=== PATIENT | female | born 1995 | race Caucasian/White ===

== ENCOUNTER 2023-04-08 21:47 | Emergency (ER) | payer MEDICAID, OTHER ==
[~2023-04-08] VITALS: Ht 160 cm; Wt 68.0 kg
[~2023-04-08 21:47] MED LIST: QUET25TA36 PO
[2023-04-08 22:21] VITALS: BP 163/47; PULSE 107; RESP 20; TEMP 99.4
== END 2023-04-08 23:02 | disposition left against medical advice (07) ==
LOC: EMS 21:47
DX: F41.8 Other specified anxiety disorders (principal); Z53.21 Procedure and treatment not carried out due to patient leaving prior to being seen by health care provider
CPT/HCPCS: 99281; Z7502

== ENCOUNTER 2023-04-09 22:40 | Inpatient (IN) | payer MEDICAID ==
[~2023-04-09] VITALS: Ht 154.9 cm; Wt 73.7 kg
[2023-04-09 23:26] LABS: GLUCOMETER DEV NAME(LOC) POC.BV
[2023-04-10 00:33] VITALS: BP 129/87; PULSE 84; RESP 18; TEMP 98.2
[2023-04-10 05:26] VITALS: BP 127/76; PULSE 99; RESP 18; TEMP 98.2
[2023-04-10] MEDS: HALOPERIDOL 5 MG TABLET PO PRN ×2 (05:31→22:51)
[2023-04-10] MEDS: LORazepam 2 MG TABLET PO PRN ×3 (05:32→22:03)
[2023-04-10] MEDS ORDERED: ALBUTEROL SULFATE HFA 90 MCG/PUFF 8 GM INHALER IH PRN (06:30)
[2023-04-10] MEDS ORDERED: NICOTINE 14 MG/24 HOUR PATCH TD PRN (06:30)
[2023-04-10] MEDS ORDERED: LOPERAMIDE HCL 2 MG CAPSULE PO PRN (06:30)
[2023-04-10] MEDS ORDERED: DOCUSATE SODIUM 100 MG CAPSULE PO PRN (06:30)
[2023-04-10] MEDS ORDERED: ACETAMINOPHEN 325 MG TABLET PO PRN (06:30)
[2023-04-10] MEDS ORDERED: CloNIDine HCL 0.1 MG TABLET PO PRN (06:30)
[2023-04-10] MEDS ORDERED: MAGNESIUM HYDROXIDE SUSPENSION 30 ML UDCUP PO PRN (06:30)
[2023-04-10] MEDS ORDERED: GuaiFENesin/D-METHORPHAN [SUGAR-FREE] 200-20MG/10 ML SYRUP UDCUP PO PRN (06:30)
[2023-04-10] MEDS ORDERED: PETROLATUM,WHITE 28 GM JELLY TP PRN (06:30)
[2023-04-10] MEDS ORDERED: MAG HYDROX/AL HYDROX/SIMETH ES 30 ML SUSPENSION UDCUP PO PRN (06:30)
[2023-04-10 08:06] LABS: BASOPHILS % (AUTO) 0.5 % (0.0-2.0); EOSINOPHILS % (AUTO) 0.2 % (1.0-6.0); HEMATOCRIT 36.5 % (36-46); HEMOGLOBIN 12.1 g/dL (12.0-16.0); LYMPHOCYTES # (AUTO) 2.5 K/uL (1.0-4.8); MEAN CORPUSCULAR HGB CONC 33.1 G/dL (31.0-37.0); MEAN CORPUSCULAR VOLUME 94 fL (80-100); MONOCYTES # (AUTO) 0.5 K/uL (0.1-1.0); MONOCYTES % (AUTO) 5.8 % (2.0-9.0); NEUTROPHILS % (AUTO) 62.5 % (40.0-70.0); PLATELET COUNT (AUTO) 270 K/uL (150-450); RED CELL DISTRIBUTION WIDTH 13.8 % (11.5-14.5)
[2023-04-10 08:08] LABS: HEMOGLOBIN A1C 5.1 % (3.8-5.6)
[2023-04-10 08:14] VITALS: RESP 16
[2023-04-10 08:34] LABS: ALANINE AMINOTRANSFERASE 21 U/L (12-78); ALBUMIN 3.4 g/dL (3.4-5.0); ALKALINE PHOSPHATASE 70 U/L (46-116); ANION GAP 12 mmol/L (8-16); ASPARTATE AMINOTRANSFERASE 23 U/L (15-37); BILIRUBIN,TOTAL 0.5 mg/dL (0.1-1.0); CALCIUM, TOTAL 8.5 mg/dL (8.8-10.5); CARBON DIOXIDE 25 mmol/L (22-29); CHLORIDE 104 mmol/L (98-107); CHOL/HDL RATIO 2.8 (3.9-5.7); CHOLESTEROL 130 mg/dL (131-200); CREATININE 0.49 mg/dL (0.60-1.30); FREE T4 (FREE THYROXINE) 1.34 ng/dL (0.76-1.46); GLOMERULAR FILTR. RATE CALC > 60 mL/min (>60); GLUCOSE,RANDOM 86 mg/dL (70-110); HCG,QUANTITATIVE < 1 mIU/mL (0-6); HDL CHOLESTEROL 47 mg/dL (40-60); LDL CHOL (CALC.) 67 mg/dL (0-130); POTASSIUM 3.6 mmol/L (3.5-5.1); SODIUM SERUM 141 mmol/L (136-145); THYROID STIMULATING HORMONE 1.67 uIU/mL (0.36-3.74); TRIGLYCERIDES 80 mg/dL (15-150)
[2023-04-10] MEDS: QUEtiapine FUMARATE 25 MG TABLET PO SCH ×2 (10:00→16:04)
[2023-04-10 21:36] VITALS: BP 120/61; PULSE 91; RESP 18; TEMP 97.8; O2SAT 96
[2023-04-10] MEDS: ZOLPIDEM TARTRATE 10 MG TABLET PO PRN (22:51)
[2023-04-11] MEDS: QUEtiapine FUMARATE 25 MG TABLET PO SCH ×2 (08:04→16:43)
[2023-04-11 08:12] LABS: CHOL/HDL RATIO 3.1 (3.9-5.7); THYROID STIMULATING HORMONE 1.4 uIU/mL (0.36-3.74)
[2023-04-11 09:57] VITALS: BP 120/61; PULSE 91; RESP 18; TEMP 97.8; O2SAT 96
[2023-04-11] MEDS: LORazepam 2 MG TABLET PO PRN (16:42)
[2023-04-11 20:27] VITALS: BP 123/79; PULSE 100; RESP 17; TEMP 97.8; O2SAT 98
[2023-04-12] MEDS: ONDANSETRON HCL 4 MG TABLET PO PRN (06:46)
[2023-04-12 08:00] VITALS: BP 96/68; PULSE 100; RESP 16; TEMP 98.1; O2SAT 96
[2023-04-12] MEDS: QUEtiapine FUMARATE 25 MG TABLET PO SCH ×2 (08:14→16:04)
[2023-04-12] MEDS: LORazepam 2 MG TABLET PO PRN (20:31)
[2023-04-12] MEDS: HALOPERIDOL 5 MG TABLET PO PRN (20:31)
[2023-04-12 21:28] VITALS: BP 117/66; PULSE 95; RESP 18; TEMP 98
[2023-04-13 08:08] VITALS: BP 118/67; PULSE 75; RESP 17; TEMP 98; O2SAT 97
[2023-04-13] MEDS: QUEtiapine FUMARATE 25 MG TABLET PO SCH ×2 (08:21→16:22)
[2023-04-13] MEDS: ONDANSETRON HCL 4 MG TABLET PO PRN (08:36)
[2023-04-13] MEDS: LORazepam 2 MG TABLET PO PRN ×2 (08:37→20:52)
[2023-04-13 20:00] VITALS: BP 122/81; PULSE 109; RESP 18; TEMP 97.6; O2SAT 97
[2023-04-13] MEDS: ZOLPIDEM TARTRATE 10 MG TABLET PO PRN (20:52)
[2023-04-13] MEDS: HALOPERIDOL 5 MG TABLET PO PRN (22:29)
[2023-04-14] MEDS: QUEtiapine FUMARATE 25 MG TABLET PO SCH ×2 (08:06→16:08)
[2023-04-14] MEDS: LORazepam 2 MG TABLET PO PRN ×3 (08:06→22:06)
[2023-04-14 09:43] VITALS: BP 113/66; PULSE 97; RESP 18; TEMP 98.4; O2SAT 98
[2023-04-14] MEDS: HALOPERIDOL 5 MG TABLET PO PRN (10:51)
[2023-04-14 22:00] VITALS: BP 118/64; PULSE 96; RESP 18; TEMP 98
[2023-04-14] MEDS: ZOLPIDEM TARTRATE 10 MG TABLET PO PRN (22:06)
[2023-04-15 08:28] VITALS: BP 112/73; PULSE 97; RESP 16; TEMP 98; O2SAT 99
[2023-04-15] MEDS: QUEtiapine FUMARATE 25 MG TABLET PO SCH ×2 (08:34→16:30)
[2023-04-15] MEDS: HALOPERIDOL 5 MG TABLET PO PRN (08:34)
[2023-04-15] MEDS: LORazepam 2 MG TABLET PO PRN ×2 (08:34→16:31)
[2023-04-15] MEDS: IBUPROFEN 400 MG TABLET PO PRN (16:31)
[2023-04-15 20:26] VITALS: BP 108/75; PULSE 84; RESP 18; TEMP 98.1; O2SAT 97
[2023-04-16 08:07] VITALS: BP 113/65; PULSE 93; RESP 18; TEMP 97.7; O2SAT 98
[2023-04-16] MEDS: QUEtiapine FUMARATE 25 MG TABLET PO SCH ×2 (09:28→16:41)
[2023-04-16] MEDS: LORazepam 2 MG TABLET PO PRN ×2 (09:28→16:41)
[2023-04-16 20:11] VITALS: BP 114/77; PULSE 98; RESP 18; TEMP 98.3; O2SAT 97
[2023-04-16 20:28] VITALS: RESP 18
[2023-04-16] MEDS: IBUPROFEN 400 MG TABLET PO PRN (20:28)
[2023-04-17 08:20] VITALS: BP 113/66; PULSE 102; RESP 17; TEMP 98.5; O2SAT 99
[2023-04-17] MEDS: QUEtiapine FUMARATE 25 MG TABLET PO SCH ×2 (08:36→16:55)
[2023-04-17 20:07] VITALS: BP 127/86; PULSE 104; RESP 19; TEMP 98; O2SAT 96
[2023-04-18 08:25] VITALS: BP 116/69; PULSE 78; RESP 18; TEMP 97.6; O2SAT 99
[2023-04-18] MEDS ORDERED: QUET25TA PO (08:27)
[2023-04-18] MEDS: QUEtiapine FUMARATE 25 MG TABLET PO SCH (09:53)
== END 2023-04-18 13:00 | disposition home or self-care (01) | DRG 753 ==
LOC: B3A 22:57
PROVIDERS: ADMIT Psychiatry & Neurology Child & Adolescent Psychiatry; ATTEND Psychiatry & Neurology Child & Adolescent Psychiatry
DX: F31.4 Bipolar disorder, current episode depressed, severe, without psychotic features (principal); E73.9 Lactose intolerance, unspecified; K59.00 Constipation, unspecified; F41.9 Anxiety disorder, unspecified; G47.00 Insomnia, unspecified; Z20.822 Contact with and (suspected) exposure to COVID-19; Z79.899 Other long term (current) drug therapy
CPT/HCPCS: 80053; 80061; 83036; 84436; 84439; 84443; 84702; 85025; 87081; Q0162